=== PATIENT | male | born 1975 | race Caucasian/White ===

== ENCOUNTER 2022-01-13 22:25 | Emergency (ER) | payer OTHER ==
[2022-01-13 22:41] VITALS: BP 106/67; TEMP 97.6; BMI 22.9
[2022-01-13] MEDS ORDERED: ACETAMINOPHEN 1000 MG/100 ML BAG IVPB ONE (22:55)
[2022-01-13] MEDS ORDERED: ACETAMINOPHEN INJECTION 100 ML IVPB ONE (23:12)
[2022-01-13 23:19] LABS: BASO % 0.5 % (0-2.0); HEMATOCRIT 39.7 % (35.4-49); HEMOGLOBIN 13.4 GM/dL (11.7-16.9); LYMPH % 13.1 % (8-40); MCH 27.6 pg (25.7-33.7); MCHC 33.7 g/dl (32.0-35.9); MEAN CELL VOLUME 81.8 fl (80-96); MEAN PLT VOLUME 7.3 fl (7.5-11.1); NEUT % 79.4 % (42.8-82.8); PLATELET COUNT 164 10^3/uL (134-434); RBC 4.86 M/mm3 (4.00-5.60); RDW 15.6 % (11.9-15.9)
[2022-01-13 23:31] LABS: CALCIUM 8.4 mg/dL (8.5-10.1)
[2022-01-13 23:32] LABS: ALBUMIN 2.9 g/dl (3.4-5.0); BLOOD UREA NITROGEN 11.1 mg/dL (7-18)
[2022-01-13 23:33] LABS: INR 1.03 (0.83-1.09); PROTHROMBIN TIME (PATIENT) 11.8 SEC (9.7-13.0)
[2022-01-13 23:35] LABS: CREATININE 1.1 mg/dL (0.55-1.3)
[2022-01-13 23:36] LABS: BILIRUBIN,TOTAL 0.3 mg/dL (0.2-1)
[2022-01-13 23:37] LABS: TOT PROT 6.4 g/dl (6.4-8.2)
[2022-01-14] MEDS ORDERED: KETOROLAC TROMETHAMINE 15 MG/ML VIAL IVPUSH ONE (00:59)
[2022-01-14] MEDS ORDERED: KETOROLAC TROMETHAMINE 15 MG/ML VIAL ONE (01:00)
[2022-01-14 01:31] VITALS: PULSE 72
== END 2022-01-14 03:00 | disposition home or self-care (01) ==
LOC: JER 22:25
PROC: 3E033GC Introduction of Other Therapeutic Substance into Peripheral Vein, Percutaneous Approach (ICD-10-PCS; principal; 2022-01-13)
DX: R07.9 Chest pain, unspecified (principal)
CPT/HCPCS: 36415; 71045-TC-FY; 80053; 84484; 85025; 85610; 85730; 93005; 93010; 99285-25